=== PATIENT | female | born 2000 ===

== ENCOUNTER 2025-04-10 16:07 | Emergency (ER) | payer OTHER, SELFPAY ==
--- NOTE | ~2025-04-10 | XR_ITS ---
EXAM: XR foot RT min 3V DATE: 04/10/2025 16:41 HISTORY: fell off side of her shoe . COMPARISON: None available. FINDINGS: Normal mineralization. No fracture or dislocation. No lytic or blastic lesion. Joint space s are maintained. No erosion or periosteal change. Soft tissues within normal limits. IMPRESSION: No acute osseous finding in the right foot. Reviewed, dictated and finalized at location K.
--- OUTSIDE RECORDS SUMMARY | 2025-04-10 16:09 | XMS_ITS | Clinical Summary ---
Author Organization [facility] Address [address] [place] [address] Care Team Providers Care Epidemiology Investigator Name Role Phone Jose Mcclain MD Primary Care Provider [phone] Source Comments [facility],non-owned Affiliates and Associated Physician Practices is amultiple site organization consisting of ambulatory clinics and hospital sitesin [place], [place] and [place]. This disclosure is being madepursuant to the Care Everywhere program and may not contain all information available regarding this patient. Last updated 18.[facility] Medications * Be aware that medications may not be up to date on this document. Alwaysverify current medications with the patient. mupirocin (BACTROBAN) 2 % ointment 30 g 1 04/17/2017 Active triamcinolone acetonide (KENALOG) 0.1 % ointment 454 g 1 04/09/2017 Active cetirizine (ZYRTEC) 10 MG tablet Take 10 mg by mouth DAILY. 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 Gender Identity Not on file Sexual Orientation Not on file Plan of Treatment Health Maintenance Due Date Last Done Comments HIV SCREENING 2015 HPV VACCINE (1 - 3-dose series) 2015 CHLAMYDIA/GONORRHEA SCREENING 2016 HEPATITIS C SCREENING 08/17/2018 DTAP/TDAP/TD VACCINES (1 - Tdap) 2019 HEPATITIS B VACCINE (1 of 3 - 19+ 3-dose series) 2019 COVID-19 VACCINE (1 - 2023-2 5 season) 2024 DEPRESSION SCREENING 09/09/2024 INFLUENZA VACCINE (#1) 2025 ZOSTER VACCINE (1 of 2) 2050 HIB VACCINE Aged Out No longer eligi ble based on patient's age to complete this topic MENINGOCOCCAL (Group B) VACC INE SHARED DECISION-MAKING Aged Out No longer eligibl e based on patient's age to complete this topic MENINGOCOCCAL GROUPS A/C/Y/W VACCINE Aged Out No longer eligible b ased on patient's age to complete this topic PNEUMOCOCCAL VACCINE Aged Out No long er eligible based on patient's age to complete this topic Care Teams Epidemiology Investigator Relationship Specialty Start Date End Date Jose Mcclain MD [address] [facility] [address] [place] [address] PCP - General 02/18/17
--- OUTSIDE RECORDS SUMMARY | 2025-04-10 16:09 | XMS_ITS | Continuity of Care Document ---
Author Organization [facility] Address [address] [place] [address] [place] [address] Phone Care Team Providers Care Right Of Way Appraiser Name Role Phone Jose Mcclain MD Unavailable Unavailable Allergies, Adverse Reactions, Alerts Substance Reaction Status Criticality No Known Allergies Active No Inform ation Medications Medication Instructions Dosage Effective Dates (start - stop) Status Comments No Drug Therapy Prescribed Procedures Procedure Date PREV VISIT, EST, AGE 18-39 PREV VISIT, NEW, AGE 12-17 Advance Directives Directive Yes / No Effective Date File Name No Information Encounters Encounter Description Practice Location Reason(s) For Visit Diagnoses Date Provider Providers Copied on Encounter [facility] [place], [address] [place], [place], [id number], [place] tel:[phone] [facility] [place] No Information 9 Johny Garcia. [address], [address] [place], [place], [id number] , [place]. tel:[phone] Referring Provider: Isabel Tesfaye [facility] [place], [id number]. tel:[phone] PREV VISIT, EST, AGE 18-39 [facility], [place], [address] [place], [id number], [place] tel:[phone] [facility] Medicine PHysical (chief complaint) Encntr for general adult medical exam w/o abnormal findingsPain in right kneeAcanthosis nigricans Dec- 9 Johny Garcia. [address], [place], [place], [address] , [place]. tel:[phone] Referring Provider: Isabel Tesfaye [address], [place], [place], [address]. tel:[phone] PREV VISIT, NEW, AGE 12-17 [facility], [address], [place], [place], [address], tel:[phone] [facility] Physical (chief complaint) Encntr for routine child health exam w/o abnormal findings 6 Johny Garcia. [address], [place], [place], [address] , [place]. tel:[phone] Referring Provider: Jose Mcclain, [address], [place], [place], [address]. tel:[phone] Family History Family Member Type Diagnosis Age At Onset Sister Problem (finding) Alive and well Father Problem (finding) Alive and well Payers Payer name Insurance type Covered constitution party ID Authoriza tion(s) No Information Social History Type Description Quantity Date Captured Comments Alcohol Use Details Unknown Caffeine Use Details Unknown Tobacco Use Status No Information Smoking Status No Information Sex Female Chief Complaint And Reason For Visit No Information Plan Of Treatment Date Type Action Status Goal Special diet education compl eted Referral Ordered: Ronaldo Gagnon -Allopathic & Osteopathic Physicians : Orthopaedic Surgery (related to Encntr for general adult medical exam w/o abnormal findings) ordered Referral Ordered: Kristin Quinn -[facility]opathic [facility] Osteopathic Physicians : Dermatology (related to Acanthosis nigricans) ordered Referral Referred To: Ronaldo Gagnon [address] [place], [place] [id number] Ordered: Referrals: Allopathic & Osteopathic Physicians : Orthopaedic Surgery. Ronaldo Gagnon. Evaluate and treat ordered Referral Referred To: Kristin Quinn [address] [place], [place] [phone] Ordered: Referrals: Allopathic & Osteopathic Physicians : Dermatology. Kristin Quinn. Evaluate and treat ordered Referral Ordered: MRI JNT OF LWR EXTRE W/O DYE Right knee ordered Referral Ordered: Kristin Quinn (related to Encntr for routine child health exam w/o abnormal findings) ordered Referral Ordered: Trinidad Dewey (related to Encntr for routine child health exam w/o abnormal findings) ordered Referral Ordered: Otolaryngology (related to Encntr for routine child health exam w/o abnormal findings) ordered Referral Referred To: Trinidad Dewey [address] [place], [place], [phone] Ordered: Referrals: Trinidad Dewey. Evaluate and treat ordered Referral Referred To: Kristin Quinn [address] [facility]
[address] [place], [phone] Ordered: Referrals: Kristin Quinn. Evaluate and treat ordered Referral Ordered: Referrals: Otolaryngology. Evaluate and treat ordered History Of Present Illness Encounter Date Complaint History Of Prese nt Illness PHysical Pt needs annual physical Pt sprained right knee while doing trampoline last Saturday . Pt bent her right knee the wrong way and heard a pop around medial right knee. Pt notices instant right knee swelling and pain Pt had to go to ER and x ray showed effusion of knee with ? MCL sprain Pt was sent home with right knee brace. Pt denies any instability of right knee. Pt notices right knee pain with bending and she notices persistent swelling of right knee. Pt denies any redness or warmth Pt denies any calf pain Pt is able to weight bearing ok on right knee Pt states that right knee pain worse with movement. pt also c/o dark shade or rash around neck and shoulder for several years Pt did see dermatology for eczema in the past but not for the dark rash. pt denies any polyuria, polydipsia Physical PT needs annual physical. Pt c/o hearing loss right ear for 2 years. Pt denies any ear pain. Pt denie any ear drainage. Pt also c/o eczema both arm. Pt c/o dry and itching both arm all the time. Pt denies any other complaints Medications Administered Medication Instructions Dosage Effective Dates (start - stop) Status Comments No Drug Therapy Prescribed Instructions Date Instruction Additional Infor fiona Special diet education Related t o Body mass index (BMI) 30.0-30.9, adult Perform monthly self breast examinations. Related to Encntr for general adult medical exam w/o abnormal findings Increase activity. Related to En cntr for general adult medical exam w/o abnormal findings Assessments Type Assessment Date No Information
[2025-04-10 16:20] VITALS: BP 125/68; PULSE 85; RESP 16; TEMP 36.4; O2SAT 100
[2025-04-10 17:01] VITALS: BP 116/85; PULSE 78; RESP 16; TEMP 36.4; O2SAT 100
--- NOTE | 2025-04-10 17:05 | ED_ITS ---
HPI - Extremity Injury (Lower) General Chief Complaint: Extremity Injury, Lower Stated Complaint: Left foot popped, difficulty walking Time Seen by Provider: 04/10/25 16:27 Source: patient Mode of arrival: ambulatory Limitations: no limitations History of Present Illness HPI Narrative: Patient is a 24 y/o female who presents to the ED with c/o R foot pain. Patient reports she was dancing last night and felt her right foot turn inward. She felt a pop in her right foot. Complains pain and swelling to right lateral dorsal foot. Has been able to ambulate, but has pain with this. Denies any other injuries. Denies numbness. Has not taken anything for pain. Related Data Allergies Allergy/AdvReac Type Severity Reaction Status Date / Time No Known Allergies Allergy Verified 04/10/25 17:01 Review of Systems Review of Systems: All systems reviewed & are unremarkable except as noted in HPI. All systems reviewed & are unremarkable except as noted in HPI and below PMFSH Family History Family History Other Diabetes mellitus Family history of malignant neoplasm Hypertension Social History Social History Smoking status: Never smoker Alcohol intake: never Exam Narrative: GENERAL: Well appearing, obese with BMI of 30.2, non-toxic, in no acute distress. HEAD: Normocephalic, atraumatic. RESPIRATORY: Airway patent, respirations nonlabored. CARDIOVASCULAR: Regular rate and rhythm without murmurs, rubs, or gallops. Pedal pulses intact and easily palpable MUSCULOSKELETAL: Moves all extremities. No gross deformities. Mild swelling and focal TTP to R lateral dorsal foot/anterior mortise. No significant tenderness over medial or lateral malleoli. Sensation intact. Capillary refill intact SKIN: Warm, dry, normal color. NEURO: A&O X3. Speech clear. Steady gait. No ataxic movements. PSYCHIATRIC: Appropriate mood and affect. Normal interaction. Course Vital Signs Vital signs: Vital Signs Temperature 97.6 F 04/10/25 16:20 Pulse Rate 85 04/10/25 16:20 Respiratory Rate 16 04/10/25 16:20 Blood Pressure 125/68 04/10/25 16:20 Pulse Oximetry 100 04/10/25 16:20 Temperature 97.5 F L 04/10/25 17:01 Pulse Rate 78 04/10/25 17:01 Respiratory Rate 16 04/10/25 17:01 Blood Pressure 116/85 04/10/25 17:01 Pulse Oximetry 100 04/10/25 17:01 MDM - Extremity Injury (Lower) MDM Narrative Medical decision making narrative: Patient?s injury is consistent with musculoskeletal etiology. No signs of neurologic or vascular compromise on physical examination. Compartments are soft without signs of compartment syndrome. XR of R foot negative for fracture. Pain is consistent with foot contusion/sprain. Patient is felt to be stable for discharge home and further outpatient management and treatment. Given Tim bandage. Advised Tylenol/ibuprofen, rice therapy. Given return precautions. Discharged in stable condition. Medical Records Attestation: I reviewed the patient's medical records. Imaging Data Attestation: I personally reviewed and interpreted this imaging study as fol lowjose r: Radiologist's impression: ITS Impressions Foot X-Ray 04/10/25 17:20 IMPRESSION: No acute osseous finding in the right foot. Discharge Plan Discharge Clinical Impression: Contusion of right foot Qualifiers: Encounter type: initial encounter Qualified Code(s): S90.31XA - Contusion of right foot, initial encounter Patient Disposition: Home Condition: Stable Instructions: Antibiotic Form, Foot Contusion (ED) Additional Instructions: Your imaging does not show any evidence of fracture. You likely sprained your foot. Utilize Tim bandage for compression and support. Recommend Tylenol and ibuprofen as needed for pain. Return to the ED for new or worsening concerns. Patient Language: Azeri Follow-up/Referrals: PHYSICIAN,[employer]BER [Primary Care Provider] - Time of Disposition: 17:25
--- OUTSIDE RECORDS SUMMARY | 2025-04-10 17:06 | XMS_ITS | Continuity of Care Document ---
Author Organization [facility] Address [address] [place] [address] [place] [address] Phone Care Team Providers Care Tufter Name Role Phone Jose Mcclain MD Unavailable [...] Diagnoses Date Provider Providers Copied on Encounter [facility], [address] [place], [place], [id number], [place] tel:[phone] [facility] No Information 9 Johny Garcia. [address] [place], [address] , [place]. tel:[phone] Referring Provider: Isabel Tesfaye [address] [facility] [place], [address]. tel:[phone] PREV VISIT, EST, AGE 18-39 [facility], [address] [place], [place], [address], [place] tel:[phone] [facility] Medicine PHysical (chief complaint) Encntr for general adult medical exam w/o abnormal findingsPain in right kneeAcanthosis nigricans Dec- 9 Johny Garcia. [address], [place], [place], [address] , [place]. tel:[phone] Referring Provider: Isabel Tesfaye [address], [place], [place], [address]. tel:[phone] PREV VISIT, NEW, AGE 12-17 [facility], [address], [place], [place], [address], tel:[phone] [facility] Physical (chief complaint) Encntr for routine child health exam w/o abnormal findings 6 Johny Garcia. [address], [place], [place], [address] , [place]. tel:[phone] Referring Provider: Jose Mcclain, Isabel [address], [place], [place], [address]. tel:[phone] Family History Family Member Type Diagnosis Age [...] Gagnon [address] [place], [place] [phone] Ordered: Referrals: Allopathic & Osteopathic Physicians : Orthopaedic Surgery. Ronaldo Gagnon. Evaluate and treat ordered Referral Referred To: Kristin Quinn [address] [place], [place] [phone] Ordered: Referrals: Allopathic & Osteopathic Physicians : [...] Referred To: Trinidad Dewey [address] [place], [place], [phone] Ordered: Referrals: Trinidad Dewey. Evaluate and treat ordered Referral Referred To: Kristin Quinn [address] [facility]
[address] [place], [phone] Ordered: Referrals: Kristin Quinn. Evaluate and treat [...]
--- OUTSIDE RECORDS SUMMARY | 2025-04-10 17:06 | XMS_ITS | Clinical Summary ---
Author Organization [facility] Address [address] [place] [address] Care Team Providers Care Meat Pumper Name Role Phone Jose Mcclain MD Primary Care Provider [phone] Source Comments [facility],non-owned Affiliates and Associated Physician Practices is amultiple site organization consisting of ambulatory clinics and hospital sitesin [place], [place], [place] and [place]. This disclosure is being madepursuant to the Care Everywhere program and may not contain all information available regarding this patient. Last updated 18.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
[2025-04-10 18:02] VITALS: BP 120/85; PULSE 65; RESP 15; TEMP 36.4; O2SAT 98
== END 2025-04-10 18:04 | disposition home or self-care (01) ==
PROVIDERS: Emergency Provider Physician Assistant
DX: S90.31XA Contusion of right foot, initial encounter (principal); X50.9XXA Other and unspecified overexertion or strenuous movements or postures, initial encounter; Y93.41 Activity, dancing
CPT/HCPCS: 73630; 99283